=== PATIENT | female | born 1975 | race Two or more races ===

== ENCOUNTER → 2017-04-16 | Outpatient (CLI) | payer SELFPAY ==
[~2017-04-16] MED LIST: CYCLOBENZAPRINE5 MG PO; IBUPROFEN800 MG PO; IMITREX PO; TOPIRAMATE25 MG PO
--- NOTE | ~2017-04-16 | CR63 ---
[facility] A Service of [facility] & [facility] RADIOLOGY TEXT RESULTS PATIENT: BERNADETTE JOYA LOCATION: [facility] : [birth year] UNIT #: [id number] AGE: [address]: Lazaro Verma III, MD SEX: F ORDER DR: [id number] [facility] [address] [place], [place] [address] [id number] O MR#: [id number] Acc #: [id number] NAME: BERNADETTE JOYA : 1975 SEX: F STUDY DATE/TIME: 04/16/2017 8:31 UNIT: [facility] ROOM: STUDY DESCRIPTION: CR Chest 2 View Attending Physician: Lazaro Verma III, M.D. Referring Physician: Lazaro Verma III, M.D. Ordering Physician: Lazaro Verma III, M.D. Primary Care Physician: Lisa Lomas M.D. MEDICAL IMAGING REPORT This report is preliminary unless electronic signature is present EXAM Chest PA and lateral 04/16/2017 HISTORY Shortness of breath on exertion today. Morbid obesity, preop laparoscopic gastric banding. PA and lateral examination of the chest upright shows a good expansion of the parenchyma with a normal distribution of the pulmonary vascularity. There is no indication of congestion, effusion, infiltrate, tumor, or nodular density. The pleural reflections and diaphragmatic contours are normal. The cardiac silhouette and mediastinal anatomy is within normal limits. IMPRESSION Normal chest. Dictated by... Skinny Kern M.D. THIS IS AN ELECTRONICALLY VERIFIED REPORT Skinny Kern M.D. at 04/16/2017 5:34 PM KAYLA/edmund TD: 04/16/2017 11:14 JOB #: [id number] MEDICAL IMAGING REPORT Page 1 of 1 COPY
--- NOTE | ~2017-04-16 | CR97 ---
[facility] A Service of [facility] & [facility] RADIOLOGY TEXT RESULTS PATIENT: BERNADETTE JOYA LOCATION: [facility] : [birth year] UNIT #: [id number] AGE: [address]: Lazaro Verma III, MD SEX: F ORDER DR: [id number] [facility] [address] [place], [place] [address] [id number] O MR#: [id number] Acc #: [id number] NAME: BERNADETTE JOYA : 1975 SEX: F STUDY DATE/TIME: 04/16/2017 8:36 UNIT: [facility] ROOM: STUDY DESCRIPTION: CR Esophagram Attending Physician: Lazaro Verma III, M.D. Referring Physician: Lazaro Verma III, M.D. Ordering Physician: Lazaro Verma III, M.D. Primary Care Physician: Lisa Lomas M.D. MEDICAL IMAGING REPORT This report is preliminary unless electronic signature is present EXAM Esophagram HISTORY Lap-Band surgery pending. Presurgical evaluation. TECHNIQUE With the patient upright, thin liquid barium was administered. Total of 12 overhead spot films were obtained with fluoroscopy time 0.5 minutes. FINDINGS The esophagus is normal in caliber. There is no evidence of stricture, filling defect or mucosal irregularity. No hiatal hernia is seen. IMPRESSION Normal examination. Dictated by... Julien Wasserman M.D. THIS IS AN ELECTRONICALLY VERIFIED REPORT Julien Wasserman M.D. at 04/17/2017 11:22 AM Leyla TD: 04/16/2017 18:11 JOB #: [id number] MEDICAL IMAGING REPORT Page 1 of 1 COPY
--- NOTE | ~2017-04-16 | EKG ---
PATIENT: BERNADETTE JOYA UNIT #: [id number] Ventricular Rate: 86 BPM Atrial Rate: 86 BPM P-R Interval: 138 ms QRS Duration: 84 ms Q-T Interval: 374 ms QTC Calculation(Bezet): 447 ms P Monahans: 16 degrees Calculated R Mon[place]ans: 21 degrees Calculated T Monahans: 38 degrees Diagnosis Line: Normal sinus rhythm Diagnosis Line: Normal ECG Diagnosis Line: When compared with ECG of 16-APR-2017 08:55, Diagnosis Line: (unconfirmed) Diagnosis Line: No significant change was found Diagnosis Line: Confirmed by BE ZAYAS MD ([id number]) on Diagnosis Line: 04/16/2017 12:08:27 PM INTERPRETING MD: CHANA DAMON
[2017-04-16 09:18] LABS: HEMOGLOBIN 14.1 gm/dL (12.0-16.0); MEAN CELL VOLUME 91.6 FL (83-96); MEAN CORPUSCULAR HEMOGLOBIN 30.1 PG (28-34); MEAN CORPUSCULAR HGB CONC 32.9 g/dL (30-36); MEAN PLATELET VOLUME 10.3 FL (6.5-11.5); RED BLOOD COUNT 4.69 X10e (3.90-5.30); RED CELL DISTRIBUTION WIDTH 13.5 % (11.0-15.5); WHITE BLOOD COUNT 9.6 X10e3 (4.0-10.5)
[2017-04-16 10:28] LABS: ALBUMIN SERUM 3.9 g/dL (3.5-5.0); BILIRUBIN,TOTAL 0.7 mg/dL (0.2-2.0); BUN/CREATININE RATIO 22.22; CALCIUM SERUM 9.4 mg/dL (8.4-10.2); CREATININE SERUM 0.9 mg/dL (0.6-1.4); POTASSIUM 4.5 mmol/L (3.5-5.1); PROTEIN TOTAL SERUM 6.9 g/dL (6.0-8.3)
== END | disposition home or self-care (01) ==
LOC: CRAD 08:19 → CAMB 09:30
PROVIDERS: Surgery
DX: Z01.818 Encounter for other preprocedural examination (principal); E66.01 Morbid (severe) obesity due to excess calories
CPT/HCPCS: 36415; 71020; 74220; 80053; 80061; 84443; 85027; 93005

== ENCOUNTER → 2017-04-28 | Day surgery (SDC) | payer SELFPAY ==
--- NOTE | ~2017-04-28 | OR ---
Unit #: [id number] #: [id number] Patient: BERNADETTE JOYA [id number] [facility] [address] [place], [place] [address] [id number] O MR#: [id number] NAME: BERNADETTE JOYA ROOM: Date of Procedure: 04/28/2017 Admission Date: 04/28/2017 Surgeon: Lazaro Verma III, M.D. : 1975 Attending Physician: Lazaro Verma III, M.D. Primary Care Physician: Felicia Lomas OPERATIVE REPORT PREOPERATIVE DIAGNOSIS Chronic morbid obesity. POSTOPERATIVE DIAGNOSIS Chronic morbid obesity. SECONDARY DIAGNOSIS Anterior paraesophageal hernia. PROCEDURES PERFORMED Laparoscopic adjustable gastric banding (AP standard with low-profile port) and laparoscopic paraesophageal hernia repair. STEAM SHOVEL ENGINEER Tolu Gomez M.D. SPECIMENS None. COMPLICATIONS None apparent. ESTIMATED BLOOD LOSS Minimal. INDICATIONS FOR PROCEDURE This is a 42-year-old lady, who has chronic morbid obesity with a BMI of 47. She has been through the bariatric program at [facility] and understands the risks and benefits of the procedure. DESCRIPTION OF PROCEDURE After consent was obtained, including the risks and benefits of slippage, erosion, port dysfunction, and possible failure of weight loss due to noncompliance, the patient was taken to the operating room and placed in the supine position. General anesthetic was administered and the abdomen was prepped and draped in standard surgical fashion. I began by making a 2 cm incision just above and to the left of the umbilicus. I used a Visiport to enter the peritoneal cavity without any difficulty. C02 pneumoperitoneum was then established. Next, I placed a 5 mm port in the right upper quadrant, a 5 mm Glory liver retractor in the subxiphoid region to provide exposure of the gastroesophageal Unit #: [id number] #: [id number] Patient: BERNADETTE JOYA junction. Next, a 10 mm port was placed in the left upper quadrant and a 5 mm port was placed in the left lateral subcostal region. I began by performing an examination of the GE junction to evaluate for a hiatal hernia. We then scored the peritoneal attachments overlying the angle of His. I then opened up the clear space in the gastrohepatic ligament, and then using 2 blunt graspers, I identified the small fat pad crossing over the right crura. I swept the fat anterior to the crura off the crura and using the pars flaccida, I created a retrogastric tunnel where the blunt grasper exited at the angle of His. Once I had made this tunnel safely, I then inserted an Allergan AP band into the abdominal cavity. This adjustable gastric band was then place around the upper part of the stomach and fastened and buckled anteriorly. We then tacked the lateral fundus over the band to the proximal pouch with 2 interrupted 0 Ethibond sutures. I then used a third stitch to imbricate the excess anterior stomach by going from the lesser curvature up towards where the last stitch was placed. We then had excellent hemostasis. I removed the Glory liver retractor. We then removed the port tubing through the initial port incision. The rest of the ports were removed, and the pneumoperitoneum was released. I then left a small tail on the tubing. We then attached the port to the excess band tubing. We placed a piece of Prolene mesh along the back side of the port and used a Prolene stitch to anchor this mesh in place. We then trimmed the excess mesh so that just a small footprint of mesh was in place behind the port. I then inserted the tubing back into the abdominal cavity, and we placed the port into a small pocket that was made just inferior to where our initial port incision was made. The mesh was in direct contact with the fascia, and this will scar in place to hold the port in place. We then injected all the port sites with 0.25% plain Marcaine, and I reapproximated the skin edges with interrupted 4-0 Vicryl subcuticular sutures. Steri-strips were then applied. The patient tolerated the procedure without any problems and returned to the recovery room in stable condition. ADDENDUM After exposure of the GE junction, the patient was noted to have a small to medium sized anterior paraesophageal hernia. I scored the phrenoesophageal ligament, reduced the hernia defect, and after identifying both the right and left crura, I reapproximated the defect with an interrupted 0 Ethibond [id number] suture. I then proceeded with the case as listed above. Dictated by... Lazaro Verma III, M.D. VCL/chandler TD: 04/29/2017 10:04 JOB #: [id number] Unit #: [id number] #: [id number] Patient: BERNADETTE JOYA OPERATIVE REPORT Page 1 of 1 X Lazaro Verma III, MD PROCEDURE OPERATIVE NOTE
--- NOTE | ~2017-04-28 | CR7 ---
[facility] A Service of [facility] & [facility] RADIOLOGY TEXT RESULTS PATIENT: BERNADETTE JOYA LOCATION: [facility] : [birth year] UNIT #: [id number] AGE: [address]: Lazaro Verma III, MD SEX: F ORDER DR: [id number] [facility] [address] [place], [place] [address] [id number] O MR#: [id number] Acc #: [id number] NAME: BERNADETTE JOYA : 1975 SEX: F STUDY DATE/TIME: 04/28/2017 10:30 UNIT: [facility] ROOM: STUDY DESCRIPTION: CR Abdomen Single AP View Attending Physician: Lazaro Verma III, M.D. Ordering Physician: Lazaro Verma III, M.D. Primary Care Physician: Lisa Lomas M.D. MEDICAL IMAGING REPORT This report is preliminary unless electronic signature is present EXAM Abdomen, one-view; 04/28/2017, 1030 hours. CLINICAL HISTORY Morbid obesity, postop Lap-Band placement today. Abdominal pain today. COMPARISON 04/16/2017 esophagram. FINDINGS Single supine view of the abdomen excludes the pelvis on the left flank. A Lap-Band is present overlying the left T10 costovertebral junction oriented at 63 degrees from vertical. Radiopaque tubing courses inferiorly to a port projecting over the left L5 transverse process. Bowel gas pattern is unremarkable. There is atelectasis at the left lung base. IMPRESSION 1. New Lap-Band overlies the left T10 costovertebral junction oriented at 63 degrees from vertical. Radiopaque tubing courses inferiorly to a port projecting over the left L5 transverse process. Bowel gas pattern is unremarkable. 2. Patchy density at the left lung base likely represents atelectasis. Dictated by... Jenniffer Spivey M.D. THIS IS AN ELECTRONICALLY VERIFIED REPORT Jenniffer Spivey M.D. at 04/28/2017 9:02 PM MAXIMILIANO/alesha TD: 04/28/2017 15:36 [facility] A Service of [facility] & [facility] RADIOLOGY TEXT RESULTS PATIENT: BERNADETTE JOYA LOCATION: [facility] #: [id number] : [birth year] UNIT #: [id number] AGE: [address]: Lazaro Verma III, MD SEX: F ORDER DR: JOB #: [id number] MEDICAL IMAGING REPORT Page 1 of 1 COPY
== END | disposition home or self-care (01) ==
LOC: CSUR 06:41
DX: E66.01 Morbid (severe) obesity due to excess calories (principal); K44.9 Diaphragmatic hernia without obstruction or gangrene; J45.909 Unspecified asthma, uncomplicated; E78.00 Pure hypercholesterolemia, unspecified; I95.9 Hypotension, unspecified; G43.909 Migraine, unspecified, not intractable, without status migrainosus; Z87.891 Personal history of nicotine dependence; Z68.42 Body mass index [BMI] 45.0-49.9, adult; Z88.0 Allergy status to penicillin; Z72.4 Inappropriate diet and eating habits; Z79.1 Long term (current) use of non-steroidal anti-inflammatories (NSAID); Z79.899 Other long term (current) drug therapy; Z98.51 Tubal ligation status; Z98.890 Other specified postprocedural states
CPT/HCPCS: 74000; 84703; C1781; J0330; J1650; J1885; J2250; J2405; J2710; J3010; J3370